=== PATIENT | female | born 1985 | race Caucasian/White ===

== ENCOUNTER 2016-10-30 12:02 | Emergency (ER) | payer MEDICAID ==
[2016-10-30 12:47] LABS: Hematocrit 41.7 % (37.0-47.0); Hemoglobin 14.1 gm/dL (12.5-16.0); Mean Corpuscular Hemoglobin 30.8 pg (27-31); Mean Corpuscular Hgb Conc 33.8 g/dl (32-36); Neutrophil # 6.3 K/mm3 (1.3-6.0); Neutrophil % 60.4 % (42-75.0); Platelet Count 273 K/mm3 (150-450); Red Blood Count 4.58 M/mm3 (4.2-5.4); Red Cell Distribution Width 12.4 % (11.5-14.0); White Blood Count 10.5 K/mm3 (4.0-10.5)
[2016-10-30 12:58] LABS: Urine Bilirubin Negative (NEGATIVE); Urine Blood Negative /ul (NEGATIVE); Urine Ketone Negative (NEGATIVE); Urine Nitrite Negative (NEGATIVE); Urine Protein Negative (NEGATIVE); Urine Urobilinogen Normal (NORMAL)
[2016-10-30 13:03] LABS: Albumin * 4.1 gm/dl (3.4-5.0); Anion Gap 16.1 mmol/L (6.8-13.8); Bilirubin, Total 0.3 mg/dL (0.0-1.1); Ca. Corrected For Albumin 8.8 mg/dL (8.4-10.2); Calcium * 9.2 mg/dL (7.9-10.9); Carbon Dioxide 22.8 mmol/L (24-32.6); Potassium 3.9 mmol/L (3.4-4.6); Total Protein 7.9 gm/dL (6.2-8.2)
[2016-10-30 13:07] LABS: Urine Appearance Clear; Urine Bacteria 1+; Urine Color Yellow; Urine RBC None Seen /hpf (0-5); Urine WBC 0-5 /hpf (0-5)
[2016-10-30] MEDS ORDERED: KETOROLAC TROMETHAMINE 30 MG/ML VIAL IV ONE (13:55)
[2016-10-30] MEDS ORDERED: ONDANSETRON HCL/PF 2 MG/ML VIAL IV ONE (13:55)
[2016-10-30] MEDS ORDERED: DIATRIZOATE MEGLU/DIATRIZO SOD 30 ML BTL PO ONE (13:55)
--- NOTE | 2016-10-30 14:00 | ERNOTE ---
Abdominal HPI - General Chief Complaint: Abdominal Pain Time Seen by Provider: 10/30/16 13:47 Source: patient Exam Limitations: no limitations - Immun/Allergies/Home Medications Immunizatons: IMMUNIZATION HX Immunizations Up to Date Yes History of Influenza Vaccine Yes Hx Pneumococcal Vaccination No Allergies/Adverse Reactions: Allergies latex Adverse Reaction (Mild, Verified 10/30/16 12:24) RASH Home Medications: HOME MEDICATIONS Sulfamethoxazole/Trimethoprim [Bactrim Ds] 1 tab PO BID #20 tab 10/30/16 [Last Taken Unknown] - History of Present Illness Narrative: Patient started yesterday morning with right sided abdominal pain that has been increasing in intensity since. She has been nauseated and dry heaving, no vomiting, normal bowel movement this morning, no urinary complaints Date (Duration): 10/29/16 Time (Timing): 08:30 Timing: constant, getting worse Quality: moderate, sharpness Modifying Factors - (Worsens): Present: breathing, eating, movement Review of Systems - Review of Systems Constitutional: Absent: recent illness, fever, chills ENT: Absent: nose congestion, nasal drainage, sore throat Respiratory: Absent: shortness of breath, cough Cardiology: Absent: chest pain, palpitations Gastrointestinal/Abdominal: Present: See HPI, nausea, abdominal pain. Absent: vomiting, diarrhea Genitourinary: Present: no symptoms reported Musculoskeletal: Absent: back pain Skin: Absent: rash Neurological: Absent: headache - Patient's Past Medical History Patient History - Medical: No pertinent hx Patient History - Cardiac/Respiratory: Bronchitis Patient History - Cancer: No Hx of Cancer Patient History - Surgical Procedures: Cholecystectomy, D & C, Tubal Ligation Patient History - Other: None LMP (females 10-50): last week - Family History Brother Family History - Medical: Seizures Family History - Cardiac/Respiratory: No pertinent hx Grandmother-Maternal Family History - Cardiac/Respiratory: Hypertension Mother Family History - Medical: Arthritis Family History - Cardiac/Respiratory: CHF, COPD, Hypertension, Sleep Apnea - Social History Living Situations: home Abuse History: No History of abuse Psych History: Hx of Anxiety Smoking Status: Current every day smoker Alcohol Use: none Drug Use: none - Immunizations Immunizations Up to Date: Yes Hx Pneumococcal Vaccination: No History of Influenza Vaccine: Yes Physical Exam - Physical Exam General Appearance: Present: wd/wn, alert, mild distress Ears, Nose, Throat: Present: normal pharynx Respiratory: Present: no respiratory distress, normal breath sounds, chest nontender, lungs clear Cardiovascular/Chest: Present: regular rate, rhythm, no murmur Gastrointestinal/Abdominal: Present: normal bowel sounds, soft, tenderness, distended, McBurney sign, Psoas sign Extremity Exam: Present: normal inspection, no edema Neurological Exam: Present: alert, oriented, normal mood/affect Skin Exam: Present: normal color, warm/dry ED Progress - Results and Orders Patient's Lab Results:: I have reviewed the patient's lab results. - Vital Signs Patient's Vital Signs:: I have reviewed the patient's vital signs. Vital Signs: Vital Signs 10/30/16 10/30/16 12:19 13:01 Temperature 36.8 C 36.9 C Pulse Rate 83 68 Respiratory 16 16 Rate Blood Pressure 144/83 128/81 O2 Sat by Pulse 98 98 Oximetry - X-Ray X-Ray #1 X-Ray: abdomen - mild retained stool Interpretation: Reviewed by me - CT/Ultrasound CT/Ultrasound Narrative: CT abdomen: no acute findings - Progress/Reassessment Chief Complaint: Abdominal Pain Progress Note-Subjective: 10/30/16 16:47 discussed results with patient, pain better will treat for UTI, declines need for nausea medications Departure - Departure Clinical Impression: Abdominal pain Qualifiers: Abdominal location: lower abdomen, unspecified Qualified Code(s): R10.30 - Lower abdominal pain, unspecified UTI (urinary tract infection) Qualifiers: Urinary tract infection type: acute cystitis Hematuria presence: without hematuria Qualified Code(s): N30.00 - Acute cystitis without hematuria Disposition: Home self-care Condition: Good Instructions: Abdominal Pain, Adult, [id number], Urinary Tract Infection, Adult, [id number] Referrals: Emile Byrne MD [Staff Physician] - Prescriptions: Sulfamethoxazole/Trimethoprim [Bactrim Ds] 1 tab PO BID #20 tab
--- OUTSIDE RECORDS SUMMARY | 2016-10-30 14:08 | XMS REPORT | Continuity of Care Document ---
:1985 Author Organization [facility] ([facility]) [place] [address] Phone [phone] Care Team Providers Name Role Phone Masha Ellison Primary Care Provider [phone] Source Comments This disclosure is being made pursuant to the Care Everywhere program, applicable federal and state laws, and may not contain all informaitonavailable regarding this patient.[facility] ([facility]) Active Allergies and Adverse Reactions No Known Allergies Current Medications Prescription Sig. Disp. Refills Start Date End Date Status amitriptyline 25 mg tablet Take 12.5 mg by Active mouth at bedtime. diclofenac 75 mg EC tablet Take 75 mg by Active mouth 2 times daily. gabapentin 300 mg capsule Take 300 mg by Active mouth 3 times daily. Tid for 3 days, 2 caps tid for 3 days then 3 caps tid daily Active Problems Not on file Social History Tobacco Use Types Packs/Day Years Used Date Current Every Day Smoker Cigarettes Smokeless Tobacco: Never Used Tobacco Cessation:Counseling Given: Yes Comments: Alcohol Use Drinks/Week oz/Week Comments No Last Filed Vital Signs Vital Sign Reading Time Taken Blood Pressure 126/80 11/02/2014 3:13 PM CDT Pulse 79 11/02/2014 3:13 PM CDT Temperature 36.6 C (97.9 F) 11/02/2014 3:13 PM CDT Respiratory Rate - - Height 1.651 m (5' 5") 11/02/2014 3:13 PM CDT Weight 80.513 kg (177 lb 8 oz) 11/02/2014 3:13 PM CDT Body Mass Index 29.54 11/02/2014 3:13 PM CDT Oxygen Saturation - - Plan of Care Health Maintenance Due Date Last Done Comments Hepatitis B Vaccine (1 of 3 - Primary Series) 1985 Tdap Vaccine 1996 Lipid Disorder Screening 01/01/2004 MMR Vaccine 01/01/2004 Td Vaccine 01/01/2004 Varicella Vaccine (1 of 2 - Adult - No Evidence of 01/01/2004 Immunity) Pneumococcal Vaccine (1 of 1 - PPSV23) 2004 Cervical Cancer Screening 01/01/2016 Influenza Vaccine: Seasonal (#1) 03/06/2016 Results from Last 3 Months Not on file
[2016-10-30] MEDS ORDERED: DIATRIZOATE MEGLU/DIATRIZO SOD 30 ML BTL ONE (14:17)
[2016-10-30] MEDS ORDERED: KETOROLAC TROMETHAMINE 30 MG/ML VIAL ONE (14:19)
[2016-10-30] MEDS ORDERED: ONDANSETRON HCL/PF 2 MG/ML VIAL ONE (14:19)
[2016-10-30 16:45] VITALS: BP 113/77
== END 2016-10-30 17:06 | disposition home or self-care (01) ==
LOC: ER 12:02
DX: N30.00 Acute cystitis without hematuria (principal); R10.30 Lower abdominal pain, unspecified; F17.210 Nicotine dependence, cigarettes, uncomplicated